=== PATIENT | male | born 1985 | race African-American/Black ===

== ENCOUNTER 2019-10-01 15:14 | Emergency (ER) | payer BC ==
[~2019-10-01] VITALS: Ht 188 cm; Wt 81.8 kg
[2019-10-01 16:23] LABS: BASOPHILS # (AUTO) 0.03 x10^3/uL (0-0.1); BASOPHILS % (AUTO) 1 % (0-1); EOSINOPHILS % (AUTO) 3 % (1-7); LYMPHOCYTES # (AUTO) 1.38 x10^3/uL (1-3.4); LYMPHOCYTES % (AUTO) 37 % (22-44); MD NO; MEAN CORPUSCULAR HEMOGLOBIN 28.3 pg (27.5-34.5); MEAN CORPUSCULAR HGB CONC 33.3 g/dL (33.2-36.2); MEAN PLATELET VOLUME 7.1 fL (7.4-10.4); MONOCYTES # (AUTO) 0.49 x10^3/uL (0.2-0.8); MONOCYTES % (AUTO) 13 % (2-9); NEUTROPHILS % (AUTO) 46 % (42-75); PLATELET COUNT 268 x10^3/uL (130-400); RED BLOOD COUNT 5.48 x10^6/uL (4.38-5.82); RED CELL DISTRIBUTION WIDTH 13.3 % (9.4-14.8)
[2019-10-01 16:34] LABS: ALANINE AMINOTRANSFERASE 36 U/L (12-78); ALBUMIN 3.5 g/dL (3.4-5.0); ANION GAP 4 mmol/L (5-15); CALCIUM 8.8 mg/dL (8.5-10.1); CHLORIDE 109 mmol/L (98-107); CREATININE 0.88 mg/dL (0.7-1.3)
[2019-10-01 16:36] LABS: ALKALINE PHOSPHATASE 68 U/L (45-117); BILIRUBIN,TOTAL 0.4 mg/dL (0.2-1.0)
--- NOTE | 2019-10-01 16:42 | NUR ---
PT RESTING COMFORTABLY. NO NEEDS AT THIS TIME. FAMILY AT BEDSIDE.
--- NOTE | 2019-10-01 17:10 | NUR ---
RANDOM GLUCOSE 56, SNACK PROVIDED. PT STATES HE IS FEELING BETTER THOUGH. PT AMBULATED TO BR AND BACK INDEPENDENTLY. DENIES ANY EXTREMITY WEAKNESS AT THIS TIME. FRIEND AT BEDSIDE. NO OTHER NEEDS AT THIS TIME.
[2019-10-01 17:58] VITALS: BP 111/65
== END 2019-10-01 18:01 | disposition home or self-care (01) ==
LOC: ED 16:03
DX: E16.2 Hypoglycemia, unspecified (principal); R55 Syncope and collapse; H53.8 Other visual disturbances; R20.0 Anesthesia of skin
CPT/HCPCS: 36415; 80053; 83036; 85025; 93005; 99284